=== PATIENT | male | born 1980 | race African-American/Black ===

== ENCOUNTER 2017-02-27 16:55 | Emergency (ER) | payer SELFPAY ==
[~2017-02-27] VITALS: Ht 167.6 cm; Wt 98.9 kg
[~2017-02-27 16:55] MED LIST: FLEXERIL10 MG PO; HYDROCODON-ACE1 EAC7 PO; MOBIC7.5 MG PO; MOTRIN600 MG PO; MOTRIN800 MG PO
[2017-02-27] MEDS ORDERED: NAPROSYN500 MG PO (17:01)
[2017-02-27] MEDS ORDERED: AMOXICILLIN500 MG PO (17:01)
[2017-02-27 17:19] VITALS: BP 118/74
== END 2017-02-27 17:20 | disposition home or self-care (01) ==
LOC: EME 16:55
DX: K08.89 Other specified disorders of teeth and supporting structures (principal); F17.200 Nicotine dependence, unspecified, uncomplicated
CPT/HCPCS: 99281; 99283

== ENCOUNTER 2017-10-14 14:51 | Emergency (ER) | payer SELFPAY ==
[~2017-10-14] VITALS: Ht 170.2 cm; Wt 100.1 kg
[~2017-10-14 14:51] MED LIST changes: +AMOXICILLIN500 MG PO; +NAPROSYN500 MG PO
[2017-10-14 16:21] LABS: HEMATOCRIT 49.1 % (38.0-50.0); HEMOGLOBIN 17.3 G/DL (12.5-16.6); MCH 29.9 PG (29.0-34.0); MCHC 35.2 G/DL (30.0-36.0); MCV 84.9 FL (86-99); RBC DIS.WIDTH-CV 13.5 % (11.8-14.6); RED BLOOD COUNT 5.78 M/uL (4.00-5.50); WHITE BLOOD COUNT 9.8 K/uL (4.1-10.2)
[2017-10-14 16:31] LABS: CHLORIDE 104 mEq/L (99-109); SODIUM 138 mEq/L (136-147)
[2017-10-14 16:33] LABS: GLUCOSE 121 mg/dL (70-99)
[2017-10-14 16:37] LABS: CREATININE 1.5 mg/dL (0.6-1.3); GFR ESTIMATE (CALCULATED) > 59 mL/min/ (58.99-99999)
[2017-10-14 16:38] LABS: UREA NITROGEN (BUN) 9 mg/dL (9-23)
[2017-10-14 17:00] LABS: PLAT.SUFFICIENCY ADEQUATE; PLATELET COUNT UNABLE TO REPORT K/uL (156-360)
[2017-10-14] MEDS ORDERED: CLEOCIN300 MG PO (18:55)
[2017-10-14 20:04] VITALS: BP 130/79
== END 2017-10-14 20:04 | disposition home or self-care (01) ==
LOC: EME 14:51
PROVIDERS: Physician Assistant
DX: K04.7 Periapical abscess without sinus (principal); L03.211 Cellulitis of face; F17.200 Nicotine dependence, unspecified, uncomplicated
CPT/HCPCS: 70491; 80048; 85027; 99281; 99285; J1885; J7030